=== PATIENT | male | born 1965 | race African-American/Black ===

== ENCOUNTER → 2021-08-28 13:55 | Outpatient (BNVA) | payer OTHER, SELFPAY | PROVIDERS: PCP Internal Medicine; Visit Provider Nurse Practitioner Family ==

== ENCOUNTER 2021-09-12 08:36 | Outpatient (REF) | payer OTHER, SELFPAY ==
--- NOTE | ~2021-09-12 | MR_ITS ---
EXAMINATION: MR LUMBAR SPINE WITHOUT CONTRAST CLINICAL INFORMATION: Spondylosis without myelopathy or radiculopathy. COMPARISON: No relevant prior imaging. TECHNIQUE: MRI of the lumbar spine was obtained using routine sequences without contrast. FINDINGS: Alignment is normal. Vertebral heights are preserved. No acute bone marrow signal changes. There is disc desiccation at L4-L5 and L5-S1. The tip of the conus medullaris is located at L1. No mass effect on the conus. Visualized distal cord signal intensity is normal. At L1-L2, L2-L3, and L3-L4 the annular contours are normal. No canal or neuroforaminal compromise at these 3 levels. At L4-L5 there is a central annular fissure associated with a bulging disc. No canal stenosis. No mass effect on the traversing or foraminal nerve roots. At L5-S1 there is a central annular fissure associated with a bulging disc. No canal stenosis. No mass effect on traversing or foraminal nerve roots. Limited visualization of the retroperitoneal anatomy reveals a small well marginated benign-appearing cystic lesion at the lower pole of the right kidney. Psoas and paraspinal muscle groups are symmetric. MR/MR lumbar spine wo con IMPRESSION: There are central annular fissures associated with bulging discs at L4-L5 and L5-S1. Otherwise unremarkable examination. No canal stenosis. No mass effect on the traversing or foraminal nerve roots.
== END 2021-09-12 08:37 | disposition home or self-care (01) ==
LOC: HO.MRI 08:36
PROVIDERS: PCP Internal Medicine; Visit Provider Nurse Practitioner Family
DX: M47.816 Spondylosis without myelopathy or radiculopathy, lumbar region (principal)
CPT/HCPCS: 72148

== ENCOUNTER 2021-09-28 09:14 | Outpatient (REF) | payer OTHER, SELFPAY ==
--- NOTE | 2021-09-28 09:17 | EMG_ITS ---
This is a 56-year-old man with 6-month history of pain, numbness and tingling in his left upper extremity more than the right upper extremity. PHYSICAL EXAMINATION: On examination, he is alert and oriented with normal intellectual functions. Cranial nerves II through XII are normal. Muscle tone and strength are normal in all 4 extremities. IMPRESSION: Rule out carpal tunnel syndrome. Nerve conduction EMG study: Low motor amplitudes and mildly prolonged distal latencies in both median nerves with completely normal sensory velocities, which may carpal tunnel syndrome unlikely and the low amplitude in the median nerve is of uncertain significance. There is no evidence of generalized neuropathy. Normal EMG of the right C5-T1 innervated muscles. Nerve conduction EMG study: Normal electrodiagnostic study of the left upper extremity with no evidence of carpal tunnel syndrome or generalized peripheral neuropathy. EMG of the left C5-T1 innervated muscles consistent with mild chronic cervical radiculopathy in the C5 and C6 myotome distribution MD KYLE Godwin/CHUNG / [id number]
== END 2021-09-28 09:15 | disposition home or self-care (01) ==
LOC: HO.NEURO 09:14
PROVIDERS: PCP Internal Medicine; Visit Provider Nurse Practitioner Family
DX: G89.29 Other chronic pain (principal); M25.512 Pain in left shoulder; M47.22 Other spondylosis with radiculopathy, cervical region
CPT/HCPCS: 95886; 95910

== ENCOUNTER → 2021-09-29 08:31 | Outpatient (BNVA) | payer OTHER, SELFPAY | PROVIDERS: PCP Internal Medicine; Visit Provider Nurse Practitioner Family ==

== ENCOUNTER 2022-01-30 06:15 | Outpatient (REF) | payer OTHER, SELFPAY ==
--- NOTE | ~2022-01-30 | FL_ITS ---
EXAMINATION: XR FLUOROSCOPY WITH IMAGES CLINICAL INFORMATION: M51.87 - Other intervertebral disc disorders, lumbosacral region COMPARISON: None. TECHNIQUE: Fluoroscopy performed by Dr. Juarez Griffin. Fluoroscopy time: 0.4 minutes DAP: 1.20 Gycm2 Images: 2 FINDINGS: There are spinal needles overlying the outer left L4 and L5 neural foramen. There is contrast seen in the respective nerve sheaths along with early transforaminal epidural extension. No visible vascular communication. FL/FL guidance in treatment room IMPRESSION: Fluoroscopy for pain management procedures.
== END 2022-01-30 06:16 | disposition home or self-care (01) ==
LOC: HO.RADIR 06:15
PROVIDERS: Visit Provider Anesthesiology
DX: M51.87 Other intervertebral disc disorders, lumbosacral region (principal); M47.22 Other spondylosis with radiculopathy, cervical region; M25.512 Pain in left shoulder; M47.812 Spondylosis without myelopathy or radiculopathy, cervical region; M47.816 Spondylosis without myelopathy or radiculopathy, lumbar region; M51.36 Other intervertebral disc degeneration, lumbar region; M51.37 Other intervertebral disc degeneration, lumbosacral region
CPT/HCPCS: 64483; 64484; J2795; J3300; Q9966